=== PATIENT | male | born 2005 | race Two or more races ===

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

== ENCOUNTER 2025-03-21 11:42 | Outpatient (CLI) | payer OTHER ==
[2025-03-21 12:57] LABS: HEMATOCRIT 44.9 % (39.0-48.0); HEMOGLOBIN 14.9 g/dL (13-16.00); MEAN CORPUSCULAR HEMOGLOBIN 27.5 pg (27.00-32.0); MEAN CORPUSCULAR HGB CONC 33.1 g/dl (32.0-36.0); PLATELET COUNT 234 K/uL (150-450); RED BLOOD COUNT 5.41 M/uL (4.00-6.00); RED CELL DISTRIBUTION WIDTH 12.7 % (11.5-14.5)
[2025-03-21 13:45] LABS: ALBUMIN 4.2 gm/dL (3.4-5.0); BILIRUBIN TOTAL 0.42 mg/dL (0.3-1.2); CALCIUM 9.3 mg/dL (8.5-10.1); CHOL HDL RATIO 3.1 (0-5.0); CREATININE SERUM 0.96 mg/dL (0.70-1.30); GFR 100.9; TOTAL PROTEIN 8.2 gm/dL (6.4-8.2)
[2025-03-21 16:35] LABS: T4 TOTAL 7.46 UG/DL (4.5-12.1); TSH 2.71 uIU/mL (0.358-3.74)
== END 2025-03-21 11:45 | disposition home or self-care (01) ==
LOC: LAB 11:42
PROVIDERS: ATTEND Pediatrics
DX: D50.8 Other iron deficiency anemias (principal); E06.9 Thyroiditis, unspecified; E78.00 Pure hypercholesterolemia, unspecified